=== PATIENT | male | born 1945 | race Caucasian/White ===

== ENCOUNTER 2018-04-08 09:22 | Day surgery (SDC) | payer MEDICARE ==
[2018-04-08] MEDS ORDERED: PROPOFOL 10 MG/ML VIAL IV ONE (09:23)
[2018-04-08] MEDS ORDERED: MIDAZOLAM HCL 2MG/2ML VIAL IV ONE (09:23)
[2018-04-08] MEDS ORDERED: LIDOCAINE 2% MDV (20MG/ML) 20ML VIAL IV ONE (09:23)
--- NOTE | 2018-04-09 12:31 | Operative Note ---
DATE OF SURGERY: 04/08/2018 OPERATION: COLONOSCOPY to the jamie-terminal ileum with electrocautery snare polypectomy. INDICATION: Prior history of cecal carcinoma, status post cecal resection. The patient returns at this time for surveillance. His last examination was 3 years ago. ANESTHESIA: Intravenous sedation was administered by the department of anesthesiology and included Diprivan titrated to effect. PROCEDURE: Following informed consent from this alert individual including a discussion of the risks and benefits of the procedure and an opportunity for the patient to ask questions, the patient was in the left lateral decubitus position. A digital rectal examination was performed. No abnormalities were noted. Following this, the Olympus [id number] video colonoscope was inserted into the rectum without resistance. The rectal mucosa had a normal appearance with normal folds and distensibility. The sigmoid colon had a few scattered diverticula noted. The colonoscope was advanced up through the remainder of the bowel to the small bowel anastomosis in the ascending colon. The anastomosis was healthy, well defined. Terminal ileum was normal. From the anastomotic site, the colonoscope was then withdrawn. The colon preparation was good. In the sigmoid colon there was a pedunculated 8 mm polyp noted which was removed with electrocautery snare polypectomy. A white eschar was noted. There was no bleeding. The polyp was suctioned on the tip of the colonoscope and placed into a specimen trap. From the polypectomy site, the colonoscope was then further withdrawn. No additional changes were appreciated except for moderate-sized internal hemorrhoids noted on retroflexion within the rectum. The endoscope was removed. The patient tolerated the procedure well and was returned to the recovery area in stable condition. IMPRESSION: 1. Previous cecal resection with healthy appearing anastomosis. 2. Normal jamie-terminal ileum. 3. Previous cecal resection. 4. Sigmoid polyp measuring 8 mm (pedunculated) removed with electrocautery snare polypectomy. 5. Diverticulosis. 6. Moderate-size internal hemorrhoids. RECOMMENDATIONS: The patient was advised to have recheck colonoscopy in 3 years' time or sooner should problems arise. Followup will also be with Dr. Herndon. As always, thank you for allowing me to participate in the care of your patient. CC: JIN HERNDON MD, FACP [facility]
== END 2018-04-08 10:15 | disposition home or self-care (01) ==
LOC: HOP 09:22
PROVIDERS: ATTEND Internal Medicine Gastroenterology
DX: Z09 Encounter for follow-up examination after completed treatment for conditions other than malignant neoplasm (principal); Z85.038 Personal history of other malignant neoplasm of large intestine; Z90.49 Acquired absence of other specified parts of digestive tract; D12.5 Benign neoplasm of sigmoid colon; K57.30 Diverticulosis of large intestine without perforation or abscess without bleeding; K64.8 Other hemorrhoids; I10 Essential (primary) hypertension; E78.00 Pure hypercholesterolemia, unspecified

== ENCOUNTER 2019-06-05 14:20 | Emergency (ER) | payer MEDICARE ==
--- NOTE | 2019-06-05 14:37 | Emergency Department Record ---
History of Present Illness - General Chief complaint: Eye Problem Stated complaint: LOST VISION IN L EYE Time Seen by Provider: 06/05/19 14:23 Source: Patient, Family Mode of Arrival: Ambulatory Limitations: No limitations - History of Present Illness Initial comments: The patient is here due to the acute onset of a R visual field defect which started when he was on the computer. He states he is unable to see anything over the R side of his visual field. He also has a mild L sided BETANCUR but no nausea, vomiting, weakness, speech issues, numbness, confusion or balance issues. The patient has no hx of similar issues and is not on any blood thinners except or a baby ASA daily. MD chief complaint: Vision change Onset/Timin -: Minutes(s) Onset Description: Sudden Location: Right eye Severity: Mild, Moderate - Related Data Home Medications Medication Instructions Recorded Confirmed Last Taken Amlodipine Besylate/Benazepril 1 each PO DAILY 06/05/19 06/05/19 06/05/19 [Amlodipine-Benazepril 10-20 mg] Aspirin [Aspir-Low] 1 tab PO DAILY 06/05/19 06/05/19 06/04/19 Potassium Chloride 10 meq PO BID 06/05/19 06/05/19 06/05/19 Simvastatin 40 mg PO QHS 06/05/19 06/05/19 06/04/19 Allergies Allergy/AdvReac Type Severity Reaction Status Date / Time No Known Allergies Allergy Unknown none Verified 06/05/19 14:54 [NO KNOWN ALLERGIES] Review of Systems Constitutional: Denies: Chills, Fever Eyes: Denies: Eye discharge ENT: Denies: Congestion Respiratory: Denies: Cough Cardiovascular: Denies: Arrhythmia Endocrine: Denies: Fatigue Gastrointestinal: Denies: Nausea Genitourinary: Denies: Dysuria Musculoskeletal: Denies: Arthralgia Skin: Denies: Bruising Neurological: Denies: Confusion Past Medical History - SOCIAL HISTORY Smoking Status: Former smoker Alcohol Use Comment: beer - RESPIRATORY Hx Respiratory Disorders: Yes Hx Sleep Apnea: Yes Hx of CPAP: Yes - CARDIOVASCULAR Hx Cardio Disorders: Yes Hx Hypertension: Yes Comment:: high cholesterol - NEURO Hx Neuro Disorders: Yes Hx Weakness: No (.) - GI Hx GI Disorders: Yes Hx Reflux: Yes (no longer has problems) Hx of Polyps: Yes Comment:: hx colon cancer - Hx Genitourinary Disorders: No - ENDOCRINE Hx Endocrine Disorders: No - MUSCULOSKELETAL Hx Musculoskeletal Disorders: Yes Hx Arthritis: Yes (hands if overwork) Comment:: pt told he has RA-no problems now - PSYCH Hx Psych Problems: No - HEMATOLOGY/ONCOLOGY Hx Hematology/Oncology Disorders: Yes Hx Anemia: Yes (w/ colon cancer) Hx Cancer: Yes (colon) Hx Chemotherapy: No Hx Radiation Therapy: No Hx Blood Transfusions: Yes Hx Blood Transfusion Reaction: No Family Medical History Family Hx Comment (NOT TO BE USED IN PLACE OF ITEMS BELOW): brother-parkinsons Hx Dementia: Brother/Sister Hx Diabetes: Mother Hx Heart Disease: Father, Brother/Sister *Heart Comment: from [place], brother Physical Exam - General General Appearance: Alert, Oriented x3, Cooperative, No acute distress - Head Head exam: Atraumatic, Normocephalic - Eye Eye exam: Normal appearance, PERRL, EOMI. negative: Conjunctival injection - ENT Throat exam: Normal inspection. negative: Tonsillar erythema, Tonsillar exudate - Neck Neck exam: Normal inspection, Full ROM. negative: Tenderness - Respiratory Respiratory exam: Normal lung sounds bilaterally. negative: Respiratory d istress - Cardiovascular Cardiovascular Exam: Normal heart sounds, Irregular rhythm. negative: Diastolic murmur, Systolic murmur - GI/Abdominal GI/Abdominal exam: Soft, Normal bowel sounds. negative: Tenderness - Extremities Extremities exam: Normal inspection, Full ROM, Normal capillary refill. negative: Tenderness - Neurological Neurological exam: Alert, Normal gait, Oriented X3, Other (Neg Drift and Rhomberg.). negative: Abnormal gait, Altered, CN II-XII intact (The vision to the R eye is not normal and the patient is only able to make out shapes and not fingers.), Motor sensory deficit Course - Reevaluation(s) Reevaluation #1: The patient is doing better at this time. His vision to the R eye is about 50% better. He denies any other issues. 06/05/19 14:52 Reevaluation #2: Due to the most likely diagnosis of an acute stroke I did discuss the case with Dr. Bhatti at [facility]. He would like the patient transferred to the ER at [facility] for urgent consultation. I then did discuss the case with Dr. Noyola in the ER and he accepts the patient in an ER to ER transfer. 06/05/19 15:04 Medical Decision Making - Data Complexity MDM Data: Labs Ordered and/or Reviewed, X-Ray Ordered and/or Reviewed, EKG Ordered and/or Reviewed - Lab Data Result diagrams: 06/05/19 14:38 06/05/19 14:38 - EKG Data -: EKG Interpreted by Me (AFib at 80. Neg ST changes, Borderline QT prolongation.) - Radiology Data Radiology results: Report reviewed (Head CT: Neg for hemorrhage. Small hypodensity L frontal white matter, Age-indeterminate infarct is not excluded.) Disposition Disposition: Transfer Clinical Impression: Occipital stroke Disposition: Acute Care Hospital Transfer Transfer To: [facility] ED Reason For Transfer: Stroke team Accepting Physician: Dennys Time Discussed w/Accepting Physician: 15:07 Condition: (2) Stable Forms: Patient Portal Access Time of Disposition: 15:07 Quality - Quality Measures Quality Measures: N/A - Blood Pressure Screening View Details: Yes Does Patient Have Any of the Following: Active Dx of HTN Blood Pressure Classification: Pre-Hypertensive BP Reading Systolic Measurement: 128 Diastolic Measurement: 75 Screening for High Blood Pressure: Patient Exclusion, Hx of HTN [G9744]
[2019-06-05 14:44] LABS: ABSOLUTE NEUTROPHIL COUNT 2.64; BASO % 0.4 % (0-6); EOS % 1.2 % (0-6); GRAN % 50.9 % (47-80); HEMATOCRIT 49.2 % (42.0-52.0); HEMOGLOBIN 16.1 gm/dl (14.0-18.0); LYMPH % 36.3 % (16-45); MEAN CELL VOLUME 94.4 fl (81-97); MEAN CORPUSCULAR HEMOGLOBIN 30.9 pg (27-33); MEAN CORPUSCULAR HGB CONC 32.7 g/dl (32-36); MEAN PLATELET VOLUME 10.5 fl (7.4-10.4); MONO % 11.2 % (0-9); PLATELET COUNT 202 K/uL (130-400); RED BLOOD COUNT 5.21 M/uL (4.40-5.70); RED CELL DISTRIBUTION WIDTH 14.1 % (11.5-14.5); WHITE BLOOD COUNT W/O DIFF 5.2 K/uL (4.2-12.2)
[2019-06-05 14:55] LABS: BLOOD UREA NITROGEN 17 mg/dL (8-23); CREATININE 0.8 mg/dL (0.7-1.2); EST GLOMERULAR FILTRATION RATE > 60 mL/min
[2019-06-05 14:56] LABS: TOTAL PROTEIN 7.3 g/dL (6.6-8.7)
[2019-06-05 14:58] LABS: GLUCOSE,RANDOM 108 mg/dL (74-109); PARTIAL THROMBOPLASTIN TIME 26.8 SECONDS (24.5-39.1); PROTHROMBIN TIME (PATIENT) 10.6 SECONDS (9.5-12.1)
[2019-06-05 15:00] LABS: ALB/GLOB RATIO 1.6 (1.1-1.8); ALBUMIN 4.5 g/dL (4.0-5.0); ALT/SGPT 29 U/L (<41); AST/SGOT 24 U/L (10.0-50.0)
[2019-06-05 15:01] LABS: ALKALINE PHOSPHATASE 72 U/L (40-129)
--- NOTE | 2019-06-05 15:01 | CT SCAN REPORT ---
EXAMINATION: CT Head without IV Contrast EXAM DATE: 06/05/2019 2:46 PM TECHNIQUE: Standard protocol CT images of the head were obtained without intravenous contrast. Burton l and sagittal reconstructed images were created. INDICATION: R visual field loss. COMPARISON: None HAND DOMINANCE: Unknown. ENCOUNTER: Not applicable FINDINGS: 1. There is no intracranial mass, midline shift, extraaxial fluid collection or hemorrhage. 2. The ventricles, sulci and cisterns are normal. 3. Small hypodensity left frontal white matter. 4. Old appearing bilateral nasal bone fractures. 5. Globes and orbits appear unremarkable. Opacification right mastoid air cells and a portion of the right middle ear and opacification of some left mastoid air cells to lesser extent. IMPRESSION: 1. No intracranial hemorrhage evident. 2. Small hypodensity left frontal white matter. Age-indeterminate infarct is not excluded. 3. Opacification right mastoid air cells and a portion of the right middle ear correlate for signs/sy mptoms of infection, cholesteatoma is not excluded in the right middle ear. Opacification of some of the left mastoid air cells to lesser extent. Posterior nasopharynx soft tissues are mildly prominent, this may represent reactive lymphoid tissue, further evaluation can be performed with direct visuali zation to exclude neoplasm. Case discussed with Dr. Macedo at 2:57 PM on 06/05/2019. Dictated by: Martin Logan DO on 06/05/2019 2:50 PM. .
[2019-06-05] MEDS ORDERED: ASPIRIN 325 MG TABLET PO ONE (15:03)
== END 2019-06-05 15:18 | disposition short-term general hospital (02) ==
LOC: ER 14:20
DX: I63.89 Other cerebral infarction (principal); R51 Headache; I48.91 Unspecified atrial fibrillation; I10 Essential (primary) hypertension; Z87.891 Personal history of nicotine dependence
CPT/HCPCS: 70450; 80053; 85025; 85610; 85730; 93005; 93010; 99285